=== PATIENT | male | born 1965 | race Caucasian/White ===

== ENCOUNTER 2016-09-23 16:28 | Observation (INO) | payer OTHER ==
--- NOTE | ~2016-09-23 | HP ---
History And Physical [facility] [address] [place]. [address] NAME: DOYLE CARDOZA JR : 63 STATUS : ADM [place] PAT#: [id number] AGE: 51 ADM/REG DATE : 09/23/16 MR#: [id number] REPORT SERV DATE: 09/23/16 DICTATED BY: JR. MELODYVENKAT YOANNA DATE: 09/23/16 REPORT STATUS : Draft TRANSCRIBED BY: MODSerena DATE: 09/23/16 DATE OF ADMISSION: 09/23/2016 NEUROLOGIST: Dr. Plaza at [facility]. HISTORY OF PRESENT ILLNESS: A 51-year-old male with history of multiple sclerosis who presents to the emergency room with complaint of chest pain and facial numbness. The patient has history of multiple sclerosis which is relapsing and remitting. He is on Tecfidera and followed by Dr. Plaza. He followed up at [facility] last week and had full MRI evaluation as well as followup with Dr. Plaza. There were no new lesions. He is on Tecfidera and has suffered from lymphocytopenia as a side effect. The plan is to transition him to a new medicine. I am unsure of what medicine he will be placed on. In addition, the patient has chronic sore throat of about one month's duration. In the past week, he developed a painful swallowing. This morning the patient was at school, he developed chest pain, it was initially dull, then became sharp, is rated 6/10. It did radiate to the neck and lasted about 4 hours and resolved spontaneously. There was no associated nausea, vomiting, diaphoresis, or shortness of breath. The patient was dizzy, also complained of perioral and distal arm numbness during the event which also resolved when the chest pain resolved. As to the cardiac risk factors, the patient does have family history, has no other cardiac risk factors. PAST MEDICAL HISTORY: Includes: 1. Relapsing remitting multiple sclerosis, initially diagnosed in 2004 on Tecfidera. 2. Status post appendectomy. 3. Left shoulder surgery. 4. Left knee surgery. 5. Carpal tunnel release. 6. Gastroesophageal reflux disease. 7. Right shoulder surgery. 8. Right thigh incision and drainage. 9. Obstructive sleep apnea, on CPAP. MEDICATIONS: Medications are being identified currently, we will review when available. ALLERGIES: MACROLIDE, CARBAPENEMS, QUINOLONES, HYDROCODONE, OXYCODONE, PENICILLIN, AND ERYTHROMYCIN. FAMILY HISTORY: Mother living, age 74, healthy. Father at age 72 of a stroke, also had coronary artery disease. One sister living and healthy. SOCIAL HISTORY: Lives in [place], [place], with his and daughter. He is . He teaches physical education at High School. He denies alcohol, tobacco, or illicit drugs. REVIEW OF SYSTEMS: History And Physical [address] [address] NAME: DOYLE CARDOZA JR : 63 STATUS : ADM [place] PAT#: [id number] AGE: 51 ADM/REG DATE : 09/23/16 MR#: [id number] REPORT SERV DATE: 09/23/16 DICTATED BY: JR. BLAKELY WILLIAM JOHN DATE: 09/23/16 REPORT STATUS : Draft TRANSCRIBED BY: MODL DATE: 09/23/16 Negative in all 12 system reviewed, except does admit to sore throat, chest pain, and cough productive of yellow phlegm. PHYSICAL EXAMINATION: VITAL SIGNS: Temperature 97.5, blood pressure 179/89, heart rate 61, and respiratory rate 16. GENERAL: The patient is alert, oriented, in no acute distress. HEENT: Pupils are equal, round, and reactive to light. Extraocular motions intact. Sclerae anicteric. Oropharynx clear. NECK: Supple. No jugular venous distention, thyromegaly, or bruits. LUNGS: Clear to auscultation bilaterally with symmetrical chest rise. Chest was without parasternal pain to palpation. ABDOMEN: Soft, nontender, bowel sounds present. EXTREMITIES: No clubbing, cyanosis, or edema. NEUROLOGIC: Cranial nerves 2 through 12 were intact. Strength and sensation were full and equal throughout. Sensation was equal bilaterally. He did have some left nystagmus. LYMPH: Lymph node survey is negative in cervical and supraclavicular region. DERMATOLOGIC: Reveals no rash or other skin lesions. PSYCHIATRIC: Mood and affect were appropriate. LABORATORY DATA: White count 4, hemoglobin 14.1, and platelets 256. PT 13.3 with an INR of 1, PTT 29.8. Sodium 142, potassium 4.7, chloride 106, bicarb 31, BUN 14, creatinine 0.9, glucose 113, magnesium 2.5, calcium 9.7, troponin I of less than 0.02. PA and lateral chest x-ray showed normal infiltrate, normal heart size, this was personally reviewed. EKG personally reviewed, showed sinus rhythm at rate of [address] or T-wave change. ASSESSMENT AND PLAN: A 51-year-old white male with: 1. Chest pain with initial negative enzymes and EKG. We will check serial troponins, check a stress test and echocardiogram in the morning. We will maintain n.p.o. after midnight for the above named test. 2. Sore throat. Exam was unremarkable. Given his lymphocytopenia as a result of his multiple sclerosis medication, we will ask ENT to evaluate for potential occult infectious or inflammatory responses. 3. Relapsing remitting multiple sclerosis, on Tecfidera. 4. Obstructive sleep apnea, CPAP as at home. 5. 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 6. Observation status. 7. I will follow this patient. WDeangeloF/SHELLEY Venkat Blakely Jr, MD / [id number] History And Physical [address] [address] NAME: DOYLE CARDOZA : 63 STATUS : ADM [place] PAT#: [id number] AGE: 51 ADM/REG DATE : 09/23/16 MR#: [id number] REPORT SERV DATE: 09/23/16 DICTATED BY: JR. BLAKELY WILLIAM JOHN DATE: 09/23/16 REPORT STATUS : Draft TRANSCRIBED BY: SHELLEY DATE: 09/23/16 CC: Venkat Blakely Jr, MD Patrick Ryan
--- NOTE | ~2016-09-23 | DS ---
Discharge Summary [facility] [address] [place]. [address] NAME: DOYLE CARDOZA JR : 63 STATUS : DIS [place] PAT#: [id number] AGE: 51 ADM/REG DATE : 09/23/16 MR#: [id number] REPORT SERV DATE: 09/25/16 DICTATED BY: JR. MELODYVENKAT LENZ DATE: 09/24/16 REPORT STATUS : Draft TRANSCRIBED BY: MODL DATE: 09/24/16 ADMISSION DATE: 09/23/2016 DISCHARGE DATE: 09/24/2016 DISCHARGE DIAGNOSES: 1. Noncardiac chest pain. 2. Chronic sore throat. 3. History of lymphocytopenia secondary to Tecfidera. 4. Relapsing remitting multiple sclerosis. 5. Obstructive sleep apnea. OPERATIONS, PROCEDURES, AND TREATMENTS: Transthoracic echocardiogram done 09/24 which showed normal left ventricular size and function with ejection fraction 55% without regional wall motion abnormalities. There was mild diastolic dysfunction. Normal right ventricular size and function. Borderline normal left atrial size. No significant valvular disease. Stress test for which Chris stage 4 was achieved with 95% predicted maximal heart rate and 13 mets. There were no EKG changes. No symptoms. No ischemic changes on imaging. Strep screen was negative. DISCHARGE MEDICATIONS: 1. Aubagio unknown dose. 2. Neurontin 600 mg twice a day, 1200 mg at bedtime. 3. Cayla 180 mg orally daily. 4. Provigil 100 mg orally daily. 5. Prevacid 30 mg daily. 6. Multivitamin tablet orally daily. 7. Magnesium 1 tablet orally daily. 8. Multivitamin one tablet orally daily. HOSPITAL COURSE: The patient was a 51-year-old white male with a history of relapsing remitting multiple sclerosis who presented to the emergency room with complaint of chest pain. The patient was seen last week by his MS specialist at [facility], Dr. Plaza. He had a full MRI evaluation. The patient's blood work revealed that he had lymphocytopenia and therefore plans to change from Tecfidera to Aubagio were made. The patient also had a sore throat for about one month. He does have seasonal allergies. Yesterday at school, the patient developed initially a dull chest pain. It was then transmitted to sharp pain, rated 6/10 with radiation to the neck area, lasted about 4 hours. There was no nausea, vomiting, diaphoresis, or shortness of breath. There was dizziness. He also had perioral and distal arm tingling. Initial exam was remarkable for an EKG that was nonischemic and cardiac enzymes that were negative. Discharge Summary [facility] [address] [place]. [address] NAME: DOYLE CARDOZA JR : 63 STATUS : DIS [place] PAT#: [id number] AGE: 51 ADM/REG DATE : 09/23/16 MR#: [id number] REPORT SERV DATE: 09/25/16 DICTATED BY: JR. BLAKELY WILLIAM JOHN DATE: 09/24/16 REPORT STATUS : Draft TRANSCRIBED BY: SHELLEY DATE: 09/24/16 The patient was admitted to the Clinical Decision Unit. He was ruled out for myocardial infarction with serial cardiac enzymes and underwent an echocardiogram and stress test, both of which were normal and are detailed above. Regarding patient's sore throat, I spoke with Dr. Ruvalcaba's office, will see him as an outpatient tomorrow, 4 p.m. Please note that the strep screen has been done and is negative. Regarding multiple sclerosis with relapsing remitting nature given that the patient's tingling was only during the time of stress during his chest pain, it was felt this was not a relapse and therefore was not treated with high-dose steroids. For discharge exam and laboratory, please see daily progress note. DISCHARGE DIET: Regular. ACTIVITY: As tolerated. WJF/SHELLEY Venkat Blakely Jr, MD / [id number] CC: Venkat Blakely Jr, MD Patrick Rhyne, M.D.
[2016-09-23 11:50] LABS: BASOPHILS 0.3 %; BASOPHILS ABSOLUTE 0.01 10/3/uL (0.0-0.16); EOSINOPHILS ABSOLUTE 0.08 10/3/uL (0.0-0.53); HEMOGLOBIN 14.1 g/dL (13.6-17.8); IMMATURE GRANULOCYTES 0.3 %; IMMATURE GRANULOCYTES ABSOLUTE 0.01 10/3/uL (0.0-0.11); LYMPHOCYTES 8.3 %; LYMPHOCYTES ABSOLUTE 0.33 10/3/uL (0.67-4.30); MANUAL DIFF NO %; MEAN CORPUS HGB CONC 34.4 g/dL (32.0-36.0); MEAN CORPUSCULAR HEMOGLOB 31.2 pg (26.0-34.0); MEAN CORPUSCULAR VOLUME 90.7 fL (80-100); MEAN PLATELET VOLUME 10.2 fL (9.2-13.0); MONOCYTES 15.3 %; MONOCYTES ABSOLUTE 0.61 10/3/uL (0.21-1.20); NEUTROPHILS 73.8 %; NEUTROPHILS ABSOLUTE 2.96 10/3/uL (2.02-8.40); PLATELET COUNT 256 10/3/uL (150-400); RBC DISTRIBUTION WIDTH 12.9 % (12.0-16.0); RED CELL COUNT 4.52 10/6/uL (4.7-6.1)
[2016-09-23 11:58] LABS: PROTIME (NOT ORD) 13.3 SEC (12.0-14.5)
[2016-09-23 11:59] LABS: PARTIAL THROMBO TIME 29.8 SEC (22.5-37.2)
[2016-09-23 12:08] LABS: BUN (BLOOD UREA NITROGEN) 14 MG/DL (6-23); CALCIUM, SERUM 9.7 MG/DL (8.5-10.4); CHEST PAIN PROFILE TAT 0 Hrs 22 Mins; CHLORIDE, SERUM 106 MMOL/L (96-112); CO2 (CARBON DIOXIDE) 31 MMOL/L (24-34); CREATININE 0.87 MG/DL (0.70-1.30); GFR AFRICAN AMERICAN 115 ML/MIN (>=60); GFR NON AFRICAN AMERICAN 99 ML/MIN (>=60); GLUCOSE, SERUM 113 MG/DL (60-99); POTASSIUM, SERUM 4.7 MMOL/L (3.5-5.3); SODIUM, SERUM 142 MMOL/L (135-148); TROPONIN I <0.02 NG/ML (<0.05)
[~2016-09-23 16:28] MED LIST: ALLEGRA180 PO; BETASERON0.3 MG SC; CEFT5 PO; CENTRUM PO; CENTRUM TAB1 TAB PO; CIP5 PO; CLARIT10 PO; DCN100 PO; MAGNESIUM PO; MAGOX4 PO; MOBIC15 MG PO; NEUR600 PO; PREV30 PO; PROVIGIL1 PO; PROVIGIL2 PO; SEPTRA DS1 TAB PO; TECFIDERA240 MG PO; ULTRAM50 PO; VITAMIN B-121000 MC1 SL; VITAMIN D3 PO
[2016-09-23] MEDS ORDERED: TECFIDERA240 MG PO (16:40)
[2016-09-23] MEDS ORDERED: OMNICEF300 PO (16:40)
[2016-09-23] MEDS ORDERED: AUBAGIO14 MG PO (16:40)
[2016-09-24 04:18] LABS: BASOPHILS 0.6 %; BASOPHILS ABSOLUTE 0.02 10/3/uL (0.0-0.16); EOSINOPHILS 5.3 %; EOSINOPHILS ABSOLUTE 0.17 10/3/uL (0.0-0.53); HEMATOCRIT 41.7 % (40.0-51.0); IMMATURE GRANULOCYTES 0.3 %; IMMATURE GRANULOCYTES ABSOLUTE 0.01 10/3/uL (0.0-0.11); LYMPHOCYTES 11.5 %; LYMPHOCYTES ABSOLUTE 0.37 10/3/uL (0.67-4.30); MEAN CORPUS HGB CONC 33.6 g/dL (32.0-36.0); MEAN CORPUSCULAR HEMOGLOB 31.3 pg (26.0-34.0); MEAN CORPUSCULAR VOLUME 93.1 fL (80-100); MEAN PLATELET VOLUME 10.6 fL (9.2-13.0); MONOCYTES 13.7 %; MONOCYTES ABSOLUTE 0.44 10/3/uL (0.21-1.20); NEUTROPHILS 68.6 %; NEUTROPHILS ABSOLUTE 2.21 10/3/uL (2.02-8.40); PLATELET COUNT 252 10/3/uL (150-400); RBC DISTRIBUTION WIDTH 12.9 % (12.0-16.0); RED CELL COUNT 4.48 10/6/uL (4.7-6.1); WHITE BLOOD CELLS 3.2 10/3/uL (4.5-10.5)
[2016-09-24 04:25] LABS: MANUAL DIFF NO %
[2016-09-24 04:30] LABS: CHLORIDE, SERUM 105 MMOL/L (96-112); CO2 (CARBON DIOXIDE) 30 MMOL/L (24-34); GFR AFRICAN AMERICAN 100 ML/MIN (>=60); GFR NON AFRICAN AMERICAN 86 ML/MIN (>=60); GLUCOSE, SERUM 107 MG/DL (60-99); POTASSIUM, SERUM 4.2 MMOL/L (3.5-5.3); SODIUM, SERUM 143 MMOL/L (135-148)
[2016-09-24 04:31] LABS: BUN (BLOOD UREA NITROGEN) 18 MG/DL (6-23); CALCIUM, SERUM 8.7 MG/DL (8.5-10.4)
[2016-09-24 07:44] LABS: ASCORBIC ACID (UR NOT ORDER) NEG (NEG); BILIRUBIN, URINE NEGATIVE (NEG); KETONE, URINE NEGATIVE (NEG); LEUKOCYTE ESTERASE(NOT OR NEG (NEG); WBC (NOT ORDERED) (RFLEX) < 1 (0-5)
== END 2016-09-24 16:19 | disposition home or self-care (01) ==
LOC: ER 16:28 → CDU1 16:35 → CDU2 16:54
PROVIDERS: Emergency Medicine; Internal Medicine
DX: R07.89 Other chest pain (principal); J31.2 Chronic pharyngitis; G35 Multiple sclerosis; G47.33 Obstructive sleep apnea (adult) (pediatric); D72.810 Lymphocytopenia; K21.9 Gastro-esophageal reflux disease without esophagitis; D64.9 Anemia, unspecified; Z98.52 Vasectomy status; Z88.1 Allergy status to other antibiotic agents; Z88.0 Allergy status to penicillin; Z98.890 Other specified postprocedural states; Z88.5 Allergy status to narcotic agent; Z88.8 Allergy status to other drugs, medicaments and biological substances; Z90.49 Acquired absence of other specified parts of digestive tract
CPT/HCPCS: 71020; 78452; 80048; 81001; 83735; 84484; 85025; 85610; 85730; 87070; 87880; 93005; 93017; 93306; 96372; 99285; A9270-GY; A9502; G0378